=== PATIENT | male | born 1945 | race Caucasian/White ===

== ENCOUNTER → 2017-11-11 | Outpatient (CLI) | payer MEDICARE, OTHER ==
[2016-01-08 08:32] VITALS: BMI 32.9
[~2017-11-11] MED LIST: ACE325 PO; ACET-2043 PO; ALF10 PO; ASPI-1471 PO; ATOR20TA65 PO; CETI-169 PO; CYCL10TA29 PO; DIAZ-1 PO; DICY10CA11 PO; DOCU-416 PO; FIN5 PO; GABA-549 PO; GEMF600T91 PO; HYDR-317 PO; HYDR-385 PO; IBUP-56 PO; IBUP800T37 PO; LEVO500T83 PO; LISI-368 PO; LOR5 PO; LORA-629 PO; METO25TA93 PO; MOM PO; MULT-1168 PO; MULT1CAP59 PO; NIT4 SL; NITR-105 PO; NITR0.4T3 SL; OMEP-218 PO; OXYB10TA21 PO; PANT40TA65 PO; PER PO; PHEN200T32 PO; POLY119P23 PO; TRAM-420 PO; VALS160T22 PO; VALS1TAB6 PO; VALS1TAB72 PO; WARF-18 PO
--- NOTE | 2017-11-11 13:43 | RADIOLOGY IMAGING REPORT ---
FACILITY: [facility] PATIENT NAME: Alberto Ellington : 1945 MR: [id number] V: [id number] EXAM DATE: ORDERING PHYSICIAN: SEAN FISHER TECHNOLOGIST: Location: Patient: Alberto Ellington : 1945 Visit/Account:[id number] Date of Sevice: 11/11/2017 KIDNEYS EXAMINATION: Renal ultrasound. History: Bladder cancer, neobladder distended on CT from September 2017 COMPARISON STUDIES: CT September 22, 2017 FINDINGS: Kidneys: Right kidney- 9.8 x 5.8 x 5.7 cm Left kidney- 9.8 x 5.5 x 5.2 cm Uniform and symmetric blood flow in each kidney by Doppler ultrasound. Hydronephrosis: Extrarenal pelvis on the right appears mildly prominent. There is a mild hydronephro sis on the left. Resistive index on the right 0.69 on the left 0.66 Both kidneys appear lobular in contour Bladder: The neobladder a prevoid volume was 536 mL. Post void residual 170 mL. Bilateral ureteral jets were identified. Abdominal aorta and IVC: Aorta and IVC are patent by Doppler ultrasound. IMPRESSION: There is a mild hydronephrosis on the left and mildly prominent extrarenal pelvis on the right Post void neobladder residual was 170 mL.. Both ureteral jets were identified Report Dictated By: Ariella Thomas MD at 11/11/2017 1:37 PM Report E-Signed By: Ariella Thomas MD at 11/11/2017 1:39 PM WSN:[email or web address]
== END ==
LOC: US 01:11
PROVIDERS: ATTEND Urology
DX: C76.0 Malignant neoplasm of head, face and neck (principal); Z85.51 Personal history of malignant neoplasm of bladder; N39.41 Urge incontinence; N13.30 Unspecified hydronephrosis; Q63.8 Other specified congenital malformations of kidney
CPT/HCPCS: 76705

== ENCOUNTER → 2018-01-27 | Outpatient (REF) | payer MEDICARE, OTHER ==
[2016-01-08 08:32] VITALS: BMI 32.9
[~2018-01-27] MED LIST changes: -WARF-18 PO; +WARF5TAB23 PO
== END ==
LOC: ZZSENDIN 16:48
PROVIDERS: ATTEND Physician Assistant Medical
DX: I50.9 Heart failure, unspecified (principal)
CPT/HCPCS: 83880

== ENCOUNTER → 2018-02-13 | Outpatient (CLI) | payer MEDICARE, OTHER ==
[2016-01-08 08:32] VITALS: BMI 32.9
--- NOTE | 2018-02-13 14:59 | RADIOLOGY IMAGING REPORT ---
FACILITY: [facility] PATIENT NAME: Alberto Ellington : 1945 MR: [id number] V: [id number] EXAM DATE: ORDERING PHYSICIAN: SEAN FISHER TECHNOLOGIST: Location: [facility] Patient: Alberto Ellington : 1945 Visit/Account:[id number] Date of Sevice: 02/13/2018 KIDNEYS EXAMINATION: Renal ultrasound. History: Transitional cell carcinoma, neobladder, hydronephrosis COMPARISON STUDIES: November 11, 2017 FINDINGS: Kidneys: Right kidney- 8.7 x 4.9 x 5.3 cm Left kidney- 10.4 x 6.1 x 4.7 cm Uniform and symmetric blood flow in each kidney by Doppler ultrasound. Hydronephrosis: Mild hydronephrosis bilaterally Bladder: The neobladder volume measured 606 mL. Post emptying volume measured 598 mL. Bilateral ure teral jets were identified Abdominal aorta and IVC: Not evaluated IMPRESSION: Mild bilateral hydronephrosis The neobladder volume measured 606 mL. the post emptying volume of 598 mL. Report Dictated By: Ariella Thomas MD at 02/13/2018 2:51 PM Report E-Signed By: Ariella Thomas MD at 02/13/2018 2:55 PM WSN:[email or web address]
[2018-02-13 15:13] LABS: PLATELET COUNT, AUTOMATED 407 K/uL (150-450)
== END ==
LOC: US 01:50
PROVIDERS: ATTEND Urology
DX: N13.30 Unspecified hydronephrosis (principal); R33.9 Retention of urine, unspecified
CPT/HCPCS: 36415; 76705; 81001; 82040; 82247; 82310; 82374; 82435; 82565; 82947; 84075; 84132; 84155; 84295; 84450; 84460; 84520; 85025

== ENCOUNTER 2018-02-21 12:00 | Outpatient (RCR) | payer MEDICARE, OTHER ==
[2016-01-08 08:32] VITALS: BMI 32.9
[2018-02-21 12:21] LABS: PLATELET COUNT, AUTOMATED 395 K/uL (150-450)
--- NOTE | 2018-02-21 14:55 | RADIOLOGY IMAGING REPORT ---
FACILITY: [facility] [place] PATIENT NAME: Alberto Ellington : 1945 MR: [id number] V: [id number] EXAM DATE: ORDERING PHYSICIAN: SEAN FISHER TECHNOLOGIST: Location: [facility] Patient: Alberto Ellington : 1945 Visit/Account:[id number] Date of Sevice: 02/21/2018 DEXA Scan Clinical history: Screening. Comparison: None available. LUMBAR SPINE: The bone mineral density (BMD) measured from L1-L4 correlates with a Z-score 2.6 and a T-score of 1.8 which is Normal as defined by the World Health Organization. The corresponding risk of fracture in the lumbar spine is Not increased compared with a young adult reference population. HIP: Bone mineral density (BMD) measured in the Left total hip region correlates with a Z-score -0.2 and a T-score of -1.1 which is osteopenia as defined by the World Health Organization. The corresponding risk of fracture in the hip is 2-3 times increased compared with a young adult reference population. T score left femoral neck -0.5 Bone mineral density (BMD) measured in the Femoral Neck region measures 1.004 g/cm2. Impression: 1. Lumbar spine: Normal. 2. Left Hip: Osteopenia. 3. Femoral Neck: Bone Mineral Density is 1.004 g/cm2 The next DEXA scan of this patient should include the following sites: L1-L4 and the left hip. FRAX? WHO Fracture Risk Assessment Tool link: <http://www.shef.ac.uk/FRAX/tool.jsp?locationValue=9> PLEASE NOTE: 1) The World Health Organization defines low BMD as follows: T-score Normal > -1 Osteopenia < -1 and > -2.5 Osteoporosis < -2.5 without fractures Established osteoporosis < -2.5 with fractures 2) In general, you may wish to consider: Diagnosis Treatment Follow-up DEXA Normal BMD Prevention 2-3 years Osteopenia Prevention/therapy 1-2 years Osteoporosis Therapy Yearly 3) Fracture risk estimated from the T-score is more accurate for vertebral fractures (often spontane ous) than for hip fractures. Report Dictated By: Ariella Thomas MD at 02/21/2018 2:50 PM Report E-Signed By: Ariella Thomas MD at 02/21/2018 2:51 PM WSN:[email or web address]
== END 2018-03-08 ==
LOC: LAB 12:00
PROVIDERS: ATTEND Urology
DX: M85.88 Other specified disorders of bone density and structure, other site (principal); R79.89 Other specified abnormal findings of blood chemistry; R33.8 Other retention of urine; N13.30 Unspecified hydronephrosis; C67.9 Malignant neoplasm of bladder, unspecified
CPT/HCPCS: 36415; 77080; 82040; 82247; 82310; 82374; 82435; 82565; 82607; 82947; 83735; 84075; 84100; 84132; 84155; 84295; 84450; 84460; 84520; 85025

== ENCOUNTER → 2018-02-24 | Outpatient (CLI) | payer MEDICARE, OTHER ==
[2016-01-08 08:32] VITALS: BMI 32.9
[~2018-02-24] MED LIST changes: +FUROSEMIDE 40 MG/4 ML VIAL IVP ONE
--- NOTE | 2018-02-24 12:43 | RADIOLOGY IMAGING REPORT ---
FACILITY: [facility] - [place] PATIENT NAME: Alberto Ellington : 1945 MR: [id number] V: [id number] EXAM DATE: ORDERING PHYSICIAN: SEAN FISHER TECHNOLOGIST: Location: [facility] [place] Patient: Alberto Ellington : 1945 Visit/Account:[id number] Date of Sevice: 02/24/2018 Examination: KIDNEY W/PHARMACEUTICAL Comparison: Ultrasound 02/13/[address] 09/22/2017. History: Hydronephrosis and neobladder. History of bladder cancer. Procedure: Standard nuclear medicine renal flow and function exam is performed with 22.4 mCi techneti um 99m DTPA. Serial anterior imaging of the abdomen is acquired; 23 minutes following tracer adminis tration, the study is augmented with 40 mg intravenous Lasix. Standard renogram curves are calculate d and evaluated. Findings: There is normal flow to both kidney although there is mildly increased tracer clearance by the left kidney. Mild prominence of both renal pelvises but no evidence of hydronephrosis. The majori ty of the tracer had already cleared the collecting systems at the time of Lasix administration. Per report, the neobladder is drained by a Espinoza catheter and only minimal activity is identified in the lower pelvis. Effective renal plasma flow (as a percentage of total): Left kidney: 58% Right kidney: 42% Post diuretic renal washout half-time: Not calculated as there was minimal residual tracer tracer in the collecting systems at the time of L asix menstruation. IMPRESSION: 1. Mildly asymmetric renal split function with 58% of total function provided by the left kidney and 42% provided by the right kidney. 2. No evidence of obstruction. Report Dictated By: Amor Garcia MD at 02/24/2018 12:32 PM Report E-Signed By: Amor Garcia MD at 02/24/2018 12:39 PM WSN:[email or web address]
== END ==
LOC: US 03:23
PROVIDERS: ATTEND Urology
DX: C67.9 Malignant neoplasm of bladder, unspecified (principal); N39.41 Urge incontinence; Z85.51 Personal history of malignant neoplasm of bladder
CPT/HCPCS: 78709; J1940

== ENCOUNTER → 2018-02-27 | Outpatient (CLI) | payer MEDICARE, OTHER ==
[2016-01-08 08:32] VITALS: BMI 32.9
[~2018-02-27] MED LIST changes: -FUROSEMIDE 40 MG/4 ML VIAL IVP ONE
[2018-02-27 16:40] LABS: PLATELET COUNT, AUTOMATED 356 K/uL (150-450)
== END ==
LOC: LAB 16:07
PROVIDERS: ATTEND Urology
DX: D64.9 Anemia, unspecified (principal); N18.9 Chronic kidney disease, unspecified; R33.8 Other retention of urine; E87.2 Acidosis
CPT/HCPCS: 36415; 82040; 82247; 82310; 82374; 82435; 82565; 82947; 84075; 84132; 84155; 84295; 84450; 84460; 84520; 85025

== ENCOUNTER → 2018-03-04 | Outpatient (CLI) | payer MEDICARE, OTHER ==
[2016-01-08 08:32] VITALS: BMI 32.9
[2018-03-04 10:08] LABS: PLATELET COUNT, AUTOMATED 343 K/uL (150-450)
== END ==
LOC: LAB 09:39
PROVIDERS: ATTEND Urology
DX: E87.2 Acidosis (principal); N18.9 Chronic kidney disease, unspecified; R33.8 Other retention of urine; Z85.51 Personal history of malignant neoplasm of bladder
CPT/HCPCS: 36415; 82040; 82247; 82310; 82374; 82435; 82565; 82947; 84075; 84132; 84155; 84295; 84450; 84460; 84520; 85025

== ENCOUNTER → 2018-03-31 | Outpatient (CLI) | payer MEDICARE, OTHER ==
[2016-01-08 08:32] VITALS: BMI 32.9
== END ==
LOC: LAB 12:58
PROVIDERS: ATTEND Urology
DX: N18.9 Chronic kidney disease, unspecified (principal); E87.2 Acidosis; R33.8 Other retention of urine; Z85.51 Personal history of malignant neoplasm of bladder
CPT/HCPCS: 36415; 82040; 82247; 82310; 82374; 82435; 82565; 82947; 84075; 84132; 84155; 84295; 84450; 84460; 84520

== ENCOUNTER → 2018-04-30 | Outpatient (CLI) | payer MEDICARE, OTHER ==
[2016-01-08 08:32] VITALS: BMI 32.9
== END ==
LOC: US 01:17
PROVIDERS: ATTEND Internal Medicine
DX: I34.8 Other nonrheumatic mitral valve disorders (principal); Z95.2 Presence of prosthetic heart valve
CPT/HCPCS: 93306

== ENCOUNTER → 2018-05-20 | Outpatient (CLI) | payer MEDICARE, OTHER ==
[2016-01-08 08:32] VITALS: BMI 32.9
== END ==
LOC: LAB 13:13
PROVIDERS: ATTEND Internal Medicine Nephrology
DX: D50.9 Iron deficiency anemia, unspecified (principal); E87.2 Acidosis; I12.9 Hypertensive chronic kidney disease with stage 1 through stage 4 chronic kidney disease, or unspecified chronic kidney disease; N18.3 Chronic kidney disease, stage 3 (moderate); D64.9 Anemia, unspecified; C67.2 Malignant neoplasm of lateral wall of bladder
CPT/HCPCS: 36415; 82040; 82306; 82310; 82374; 82435; 82550; 82565; 82570; 82728; 82947; 83540; 83550; 83970; 84100; 84132; 84156; 84295; 84520; 85018

== ENCOUNTER → 2018-06-06 | Outpatient (CLI) | payer MEDICARE, OTHER ==
[2016-01-08 08:32] VITALS: BMI 32.9
--- NOTE | 2018-06-06 19:40 | RADIOLOGY IMAGING REPORT ---
[place] [facility] [place] Alberto Ellington : 1945 MR: [id number] V: [id number] EXAM DATE: ORDERING PHYSICIAN: BRITT GARNETT TECHNOLOGIST: Location: [facility] Patient: Alberto Ellington : 1945 Visit/Account:[id number] Date of Sevice: 06/06/2018 Carotid ultrasound Indication: Possible stroke, question carotid disease Comparison:None available Findings: On the right : Peak systolic velocity of the right common carotid artery is 77 cm/s Peak systolic velocity of the right internal carotid artery is 48, 82 and 48 cm/s in the proximal, mi d and distal portion respectively.. Grayscale images demonstrate mild disease distal common carotid a rtery. The region of the bulb is limited due to anterior shadowing calcium. Waveform morphology in th e right internal carotid artery demonstrates mild parvus tardus waveform. There is normal antegrade flow of the right vertebral artery. The right ICA/CCA ratio is 1.2 On the left: Peak systolic velocity of the left common carotid artery is 111 cm/s Peak systolic velocity of the left internal carotid artery is 53, 77 and 60 cm/s in the proximal, mid and distal portion respectively. Grayscale images demonstrate mild anterior plaque distal common car otid artery. Grayscale images demonstrate anterior plaque causing approximately 30% narrowing in the caudal portion of the carotid bulb. Waveform morphology in the internal carotid artery demonstrates n o significant parvus tardus waveform. There is normal antegrade flow of the left vertebral artery. The left ICA/CCA ratio is 1.1 IMPRESSION: 1. There is mild atherosclerotic disease in the common carotid arteries and carotid bulbs. By SRU cri teria, there is less than 50% stenosis in the bilateral internal carotid arteries Report Dictated By: Herbie Boggs MD at 06/06/2018 7:32 PM Report E-Signed By: Herbie Boggs MD at 06/06/2018 7:37 PM WSN:[email or web address]
== END ==
LOC: US 02:05
PROVIDERS: ATTEND Internal Medicine
DX: I65.23 Occlusion and stenosis of bilateral carotid arteries (principal)
CPT/HCPCS: 93880

== ENCOUNTER 2018-06-25 14:58 | Outpatient (RCR) | payer MEDICARE, OTHER ==
[2016-01-08 08:32] VITALS: Wt 71.5 kg
[2018-06-03] MEDS: IRON SUCROSE 100 MG/5 ML VIAL IVP PRN (13:39)
[2018-06-03] MEDS: NS(*) 0.9% 100 ML BAG 100 ML IVPB PRN ×2 (13:41→13:42)
[2018-06-03 13:43] VITALS: BP 141/82
[2018-06-03] MEDS: LIDOCAINE/SOD BICARB 8.4% SYR ID PRN (14:00)
[2018-06-03 14:51] VITALS: BP 163/93
[2018-06-10] MEDS: NS(*) 0.9% 100 ML BAG 100 ML IVPB PRN (13:51)
[2018-06-10] MEDS: IRON SUCROSE 100 MG/5 ML VIAL IVP PRN (13:57)
[2018-06-10] MEDS: LIDOCAINE/SOD BICARB 8.4% SYR ID PRN (14:17)
[2018-06-19 14:07] VITALS: BP 132/84
[2018-06-19] MEDS: IRON SUCROSE 100 MG/5 ML VIAL IVP PRN (15:12)
[2018-06-19] MEDS: NS(*) 0.9% 100 ML BAG 100 ML IVPB PRN (15:20)
[2018-06-19] MEDS: LIDOCAINE/SOD BICARB 8.4% SYR ID PRN (15:41)
[2018-06-19 16:13] VITALS: BP 129/81
[~2018-06-25 14:58] MED LIST changes: +DEXTROSE 5%(*) 100 ML BAG 100 ML IVPB PRN; -GEMF600T91 PO; +GEMF600T92 PO
[2018-06-25 15:02] VITALS: BP 143/93
[2018-06-25] MEDS: IRON SUCROSE 100 MG/5 ML VIAL IVP PRN (15:22)
[2018-06-25] MEDS: LIDOCAINE/SOD BICARB 8.4% SYR ID PRN (15:22)
[2018-06-25] MEDS: NS(*) 0.9% 100 ML BAG 100 ML IVPB PRN ×2 (15:22→15:23)
== END 2018-07-04 09:18 | disposition home or self-care (01) ==
LOC: SPU 14:58
PROVIDERS: ATTEND Internal Medicine Nephrology
DX: D50.9 Iron deficiency anemia, unspecified (principal); D64.9 Anemia, unspecified; N18.3 Chronic kidney disease, stage 3 (moderate)
CPT/HCPCS: 96365; J1756; J7050

== ENCOUNTER → 2018-07-02 | Outpatient (REF) | payer MEDICARE, OTHER ==
[2016-01-08 08:32] VITALS: BMI 32.9
[~2018-07-02] MED LIST changes: -DEXTROSE 5%(*) 100 ML BAG 100 ML IVPB PRN
== END ==
LOC: ZZSENDIN 17:40
PROVIDERS: ATTEND Urology
DX: C67.9 Malignant neoplasm of bladder, unspecified (principal)
CPT/HCPCS: 88108

== ENCOUNTER → 2018-09-07 | Outpatient (CLI) | payer MEDICARE, OTHER ==
[2016-01-08 08:32] VITALS: BMI 32.9
[2018-09-07 14:36] LABS: PLATELET COUNT, AUTOMATED 289 K/uL (150-450)
== END ==
LOC: LAB 14:14
PROVIDERS: ATTEND Urology
DX: C67.9 Malignant neoplasm of bladder, unspecified (principal)
CPT/HCPCS: 36415; 82040; 82247; 82248; 82310; 82374; 82435; 82565; 82947; 84075; 84132; 84155; 84295; 84450; 84460; 84520; 85025

== ENCOUNTER → 2018-09-09 | Outpatient (CLI) | payer MEDICARE, OTHER ==
[2016-01-08 08:32] VITALS: BMI 32.9
[2018-09-09 10:10] LABS: PLATELET COUNT, AUTOMATED 335 K/uL (150-450)
== END ==
LOC: LAB 08:54
PROVIDERS: ATTEND Internal Medicine Nephrology
DX: D64.9 Anemia, unspecified (principal); I10 Essential (primary) hypertension; C67.2 Malignant neoplasm of lateral wall of bladder; D50.9 Iron deficiency anemia, unspecified; E87.2 Acidosis; N18.3 Chronic kidney disease, stage 3 (moderate)
CPT/HCPCS: 36415; 82040; 82310; 82374; 82435; 82565; 82947; 84100; 84132; 84295; 84520; 85025

== ENCOUNTER → 2018-09-09 | Outpatient (CLI) | payer MEDICARE, OTHER ==
[2016-01-08 08:32] VITALS: BMI 32.9
--- NOTE | 2018-09-09 09:31 | RADIOLOGY IMAGING REPORT ---
FACILITY: [facility] PATIENT NAME: Alberto Ellington : 1945 MR: [id number] V: [id number] EXAM DATE: ORDERING PHYSICIAN: SEAN FISHER TECHNOLOGIST: Location: [facility] [place] Patient: Alberto Ellington : 1945 Visit/Account:[id number] Date of Sevice: 09/09/2018 CHEST PA AND LAT COMPARISON: September 22, 2017 HISTORY: History of bladder cancer, now with cough, chest congestion. Former smoker, quit 1979. FINDINGS: CARDIAC/VASC: Overall normal cardiac size. Intact sternotomy wires with prosthetic aortic valve i n its expected position. The venous vasculature is normal. MEDIASTINUM: Mild aortic calcifications. There is no appreciable adenopathy. LUNGS/PLEURA: No significant parenchymal opacities or pulmonary nodules that plain films. There is no effusion or pleural thickening. Lung volumes are probably upper normal. BONES: Moderate bony humeral joint osteophytosis bilaterally. Mild endplate spurring in the lowe r thoracic spine with moderate degenerative disc disease at an indeterminate level of the upper lumba r spine. Multilevel cervicothoracic fusion changes posteriorly. These are incompletely imaged. No discrete bone lesions are seen. OTHER:Negative. IMPRESSION: No plain film evidence of thoracic metastatic disease. No findings to account for current symptoms. Report Dictated By: Justo Barrientos at 09/09/2018 9:24 AM Report E-Signed By: Justo Barrientos at 09/09/2018 9:27 AM WSN:[email or web address]
--- NOTE | 2018-09-09 09:46 | RADIOLOGY IMAGING REPORT ---
FACILITY: [facility] PATIENT NAME: Alberto Ellington : 1945 MR: [id number] V: [id number] EXAM DATE: ORDERING PHYSICIAN: SEAN FISHER TECHNOLOGIST: Location: [facility] [place] Patient: Alberto Ellington : 1945 Visit/Account:[id number] Date of Sevice: 09/09/2018 ABDOMEN/PELVIS W/O CONTRAST COMPARISON: 05/22/2017, 04/29/2017 HISTORY: Bladder cancer. TECHNIQUE: Axial CT abdomen and pelvis without intravenous contrast. Coronal and sagittal reformats . One of the following dose optimization techniques was utilized in the performance of this exam: auto mated exposure control; adjustment of the mA and/or kV according to patient size; or use of iterative reconstruction technique. Specific details can be referenced in the facility's radiology CT exam op erational policy. CONTRAST: No intravenous contrast. FINDINGS: Lack of IV contrast limits assessment of the liver and other solid organs for subtle pathology. Withi n these limitations, the following observations are made: LUNG BASES: Mild coronary artery calcifications. Intact sternotomy, incompletely imaged. No signif icant lung base nodules have developed. LIVER: Unremarkable. BILIARY: Unremarkable gallbladder. No intra-or extrahepatic bile duct dilatat ion. SPLEEN: Normal. PANCREAS: Unremarkable. Limited assessment by noncontrast CT. No focal enlargement to suggest the p resence of a mass. No evidence of acute pancreatitis. ADRENALS: Unremarkable. KIDNEYS: Moderate bilateral pelvocaliectasis and ureter dilatation, new from previous with both uret ers dilated all way down to a distended neobladder, and this could be due to vesicoureteral reflux. No renal or ureteral stones. No contour deforming renal masses. GI/MESENTERY: Mid to distal small bowel resection changes. No visible mass, obstruction, or bowel w all thickening. Normal appendix. No localized inflammation or concerning peritoneal nodularity. Pr evious mesh ventral hernia or atrophy, midline abdomen with mild rectus muscle diastases and outward bowing of the mesh but no recurrent hernia. Mild sigmoid diverticulosis. VASCULAR: Moderate diffuse vascular calcifications. LYMPH NODES: No significantly enlarged lymph nodes. Numerous clips in the pelvic retroperitoneum fr om previous lymph node dissection. Prominent but not frankly enlarged inguinal nodes bilaterally. O n the left these measure up to 1 cm short axis (series 2 image 144), with this noted on the incomplet john imaged on the prior study where it measured at least 0.7 cm short axis. This node measured 0.8 c m short axis diameter on 04/29/2017 The rest are subcentimeter short axis size. BLADDER: Prior cystectomy with a distended otherwise unremarkable neobladder. PELVIC ORGANS: Prostate is absent. BONES: Moderate thoracic and lumbar spine degenerative changes. Moderate hip osteoarthritis bilater ally. Mild lumbar spine scoliosis.No acute-appearing fracture or suspicious osseous lesion. OTHER: Negative. IMPRESSION: 1. Previous cystoprostatectomy with neobladder construction. The neobladder is significantly disten ded and there is moderate bilateral hydronephrosis. The combination of findings is suggestive of shaheen ateral vesicoureteral reflux. 2. No evidence of locally recurrent tumor and no evidence of metastatic disease. There are prominen t inguinal lymph nodes bilaterally which are larger than previous but technically upper normal in siz e. Report Dictated By: Justo Barrientos at 09/09/2018 9:27 AM Report E-Signed By: Justo Barrientos at 09/09/2018 9:42 AM WSN:[email or web address]
== END ==
LOC: CT 01:04
PROVIDERS: ATTEND Urology
DX: C67.9 Malignant neoplasm of bladder, unspecified (principal)
CPT/HCPCS: 71046; 74176

== ENCOUNTER → 2018-09-16 | Outpatient (CLI) | payer MEDICARE, OTHER ==
[2016-01-08 08:32] VITALS: BMI 32.9
== END ==
LOC: LAB 11:51
PROVIDERS: ATTEND Urology
DX: N18.9 Chronic kidney disease, unspecified (principal); N13.30 Unspecified hydronephrosis
CPT/HCPCS: 36415; 82040; 82247; 82310; 82374; 82435; 82565; 82947; 84075; 84132; 84155; 84295; 84450; 84460; 84520

== ENCOUNTER → 2018-09-30 | Outpatient (CLI) | payer MEDICARE, OTHER ==
[2016-01-08 08:32] VITALS: BMI 32.9
== END ==
LOC: LAB 15:03
PROVIDERS: ATTEND Internal Medicine Nephrology
DX: E87.2 Acidosis (principal); N18.3 Chronic kidney disease, stage 3 (moderate); D64.9 Anemia, unspecified; D50.9 Iron deficiency anemia, unspecified; I35.0 Nonrheumatic aortic (valve) stenosis; I10 Essential (primary) hypertension

== ENCOUNTER → 2018-09-30 | Outpatient (CLI) | payer MEDICARE, OTHER ==
[2016-01-08 08:32] VITALS: BMI 32.9
--- NOTE | 2018-09-30 16:15 | RADIOLOGY IMAGING REPORT ---
FACILITY: [facility] - [place] PATIENT NAME: Alberto Ellington : 1945 MR: [id number] V: [id number] EXAM DATE: ORDERING PHYSICIAN: SEAN FISHER TECHNOLOGIST: Location: [facility] [place] Patient: Alberto Ellington : 1945 Visit/Account:[id number] Date of Sevice: 09/30/2018 KIDNEYS HISTORY: Hydronephrosis, chronic kidney disease. COMPARISON: Renal ultrasound 02/13/2018. FINDINGS: Kidneys: Right kidney- 7.7 cm in length with normal parenchymal thickness and echogenicity. Left kidney- 9.7 cm in length with normal parenchymal thickness and echogenicity. Right and left resistive indices are normal. Uniform and symmetric blood flow in each kidney by Doppler ultrasound. Hydronephrosis: None. Bladder: Unremarkable. Abdominal aorta and IVC: Patent by Doppler ultrasound. IMPRESSION: Normal renal ultrasound. Report Dictated By: Chris Turner at 09/30/2018 4:08 PM Report E-Signed By: Chris Turner at 09/30/2018 4:10 PM WSN:[email or web address]
== END ==
LOC: US 00:38
PROVIDERS: ATTEND Urology
DX: N13.30 Unspecified hydronephrosis (principal); N18.9 Chronic kidney disease, unspecified
CPT/HCPCS: 36415; 76705; 82040; 82247; 82310; 82374; 82435; 82565; 82947; 84075; 84132; 84155; 84295; 84450; 84460; 84520

== ENCOUNTER 2018-10-13 16:12 | Outpatient (RCR) | payer MEDICARE, OTHER ==
[2016-01-08 08:32] VITALS: BMI 32.9
--- NOTE | 2018-10-15 17:37 | RADIOLOGY IMAGING REPORT ---
[place] [facility] [place]IENT NAME: Alberto Ellington : 1945 MR: [id number] V: [id number] EXAM DATE: ORDERING PHYSICIAN: SEAN FISHER TECHNOLOGIST: [place] [facility] [place] Patient: Alberto Ellington : 1945 Visit/Account:[id number] Date of Sevice: 10/15/2018 KIDNEYS EXAMINATION: Renal ultrasound. History: Incomplete bladder emptying,, chronic kidney disease, hydronephrosis COMPARISON STUDIES: August 30, 2018 FINDINGS: Kidneys: Right kidney- 8 x 4.9 x 4.1 cm Left kidney- 9.8 x 6.2 x 4.2 cm Uniform and symmetric blood flow in each kidney by Doppler ultrasound. Hydronephrosis: none Resistive index on the right 0.65 non the left 0.63 This a slightly lobular contour to both kidneys Bladder: The bladder appeared decompressed and folded upon itself. It was not ideally evaluated. Th e prevoid volume was 46 mL and postvoid residual 24 mL. Bilateral ureteral jets are present Abdominal aorta and IVC: Aorta and IVC are patent by Doppler ultrasound. IMPRESSION: Kidneys appear unremarkable other than mild lobular contour bilaterally The bladder was not well filled with distended with urine and appeared folded upon itself, not ideall y evaluated urine Report Dictated By: Ariella Thomas MD at 10/15/2018 5:30 PM Report E-Signed By: Ariella Thomas MD at 10/15/2018 5:32 PM WSN:[email or web address]
== END 2018-11-17 ==
LOC: US 16:12 → EDSTATUS 10-15 16:12
PROVIDERS: ATTEND Urology
DX: N18.3 Chronic kidney disease, stage 3 (moderate) (principal); R33.8 Other retention of urine; Z85.51 Personal history of malignant neoplasm of bladder; N13.30 Unspecified hydronephrosis
CPT/HCPCS: 76705

== ENCOUNTER → 2018-10-13 | Outpatient (CLI) | payer MEDICARE, OTHER ==
[2016-01-08 08:32] VITALS: BMI 32.9
[~2018-10-13] MED LIST changes: -GEMF600T92 PO; +GEMF600T96 PO
== END ==
LOC: LAB 16:43
PROVIDERS: ATTEND Internal Medicine Nephrology
DX: N18.3 Chronic kidney disease, stage 3 (moderate) (principal); I10 Essential (primary) hypertension
CPT/HCPCS: 36415; 82310; 82374; 82435; 82565; 82947; 84132; 84295; 84520

== ENCOUNTER → 2019-01-21 | Outpatient (CLI) | payer MEDICARE, OTHER ==
[2016-01-08 08:32] VITALS: BMI 32.9
--- NOTE | 2019-01-21 13:46 | RADIOLOGY IMAGING REPORT ---
[place] [facility] [place]: Alberto Ellington : 1945 MR: [id number] V: [id number] EXAM DATE: ORDERING PHYSICIAN: SEAN FISHER TECHNOLOGIST: Location: [facility] [place] Patient: Alberto Ellington : 1945 Visit/Account:[id number] Date of Sevice: 01/21/2019 KIDNEYS HISTORY: History of incomplete bladder is obtained. [employer] reports a history of transitional c ell carcinoma with bladder transplant ADDITIONAL HISTORY: None. COMPARISON: Comparison ultrasound dated 10/15/[address] dated 09/09/2018 FINDINGS: Kidneys: Right kidney- 8.6 craniocaudad by 4.5 x 4.3 cm, normal parenchymal thickness and echogenicity. Sligh t cortical lobulation unchanged. Left kidney- 8.8 craniocaudad by 5.1 x 5.2 cm, normal parenchymal thickness and echogenicity. Slight cortical lobulation unchanged. Uniform and symmetric blood flow in each kidney by Doppler ultrasound. Hydronephrosis: None. Bladder: Again seen is a prominent septal soft tissue area in the intraluminal bladder. Clinical cor relation needed as this is probably related the patient's previous bladder surgery and reported trans plant. The appearance is unchanged from the previous ultrasound can also be seen on the prior CT.. Bilateral ureteral jets: Documented Prevoid volume 161 mL and post void volume 19.5 mL. Mild postvoid residual. Abdominal aorta and IVC: Patent by Doppler ultrasound. IMPRESSION: Septal soft tissue again seen in the urinary bladder unchanged. Mild postvoid residual. Exam otherwise unremarkable. Report Dictated By: Ramo Pickard MD at 01/21/2019 1:31 PM Report E-Signed By: Ramo Pickard MD at 01/21/2019 1:40 PM WSN:[email or web address]
== END ==
LOC: US 01-15 00:10
PROVIDERS: ATTEND Urology
DX: R33.8 Other retention of urine (principal); N13.30 Unspecified hydronephrosis; N18.9 Chronic kidney disease, unspecified
CPT/HCPCS: 36415; 76705; 82040; 82247; 82310; 82374; 82435; 82565; 82947; 84075; 84132; 84155; 84295; 84450; 84460; 84520

== ENCOUNTER → 2019-06-11 | Outpatient (CLI) | payer MEDICARE, OTHER ==
[2016-01-08 08:32] VITALS: BMI 32.9
[2019-06-11 12:06] LABS: PLATELET COUNT, AUTOMATED 240 K/uL (150-450)
== END ==
LOC: LAB 11:25
PROVIDERS: ATTEND Internal Medicine Nephrology
DX: N18.3 Chronic kidney disease, stage 3 (moderate) (principal); E87.2 Acidosis; R33.9 Retention of urine, unspecified; D63.1 Anemia in chronic kidney disease; I12.9 Hypertensive chronic kidney disease with stage 1 through stage 4 chronic kidney disease, or unspecified chronic kidney disease
CPT/HCPCS: 36415; 82040; 82310; 82374; 82435; 82565; 82570; 82947; 83970; 84100; 84132; 84156; 84295; 84520; 85025

== ENCOUNTER → 2019-06-18 | Outpatient (CLI) | payer MEDICARE, OTHER ==
[2016-01-08 08:32] VITALS: BMI 32.9
== END ==
LOC: LAB 11:45
PROVIDERS: ATTEND Internal Medicine Nephrology
DX: E78.2 Mixed hyperlipidemia (principal); N18.3 Chronic kidney disease, stage 3 (moderate); I12.9 Hypertensive chronic kidney disease with stage 1 through stage 4 chronic kidney disease, or unspecified chronic kidney disease
CPT/HCPCS: 36415; 82310; 82374; 82435; 82565; 82947; 84132; 84295; 84520